=== PATIENT | male | born 1960 | race Caucasian/White ===

== ENCOUNTER 2018-02-23 17:38 | Inpatient (IN) | payer BC ==
[~2018-02-23] VITALS: Ht 167.6 cm; Wt 76.2 kg
[2018-02-23] MEDS ORDERED: KETOROLAC 30MG/ML VIAL IV ONE (18:00)
[2018-02-23] MEDS ORDERED: ONDANSETRON HCL 4MG/2ML INJ IV ONE (18:00)
[2018-02-23] MEDS ORDERED: SODIUM CHLORIDE 0.9% 1000ML BAG (SEPSIS BOLUS) IV ONE (18:00)
[2018-02-23 18:43] LABS: EOSINOPHILS % 0.8 % (0.0-5.0); HEMATOCRIT. 44.4 % (42.0-52.0); HEMOGLOBIN. 14.6 g/dL (14.0-18.0); LYMPHOCYTES % 15.3 % (20.0-50.0); MEAN CORPUSCULAR HEMOGLOBIN 28.5 pg (28.0-32.0); MEAN CORPUSCULAR VOLUME 86.4 fL (80.0-94.0); MEAN PLATELET VOLUME 9.6 fl (7.4-10.4); MONOCYTES % 2.3 % (2.0-8.0); NEUTROPHILS % 80.6 % (40.0-76.0); PLATELET 108 x1000/uL (130-400); RED BLOOD CELL COUNT 5.14 mill/uL (4.7-6.1); RED CELL DISTRIBUTION WIDTH 13.8 % (11.6-14.6)
[2018-02-23 18:45] LABS: CHLORIDE 103 mEq/L (98-107)
[2018-02-23 18:46] LABS: INR 1.3; PROTHROMBIN TIME 12.9 sec (9.1-11.1)
[2018-02-23] MEDS ORDERED: PIPERACILLIN/TAZ 3.375G PREMIX 50 ML IV NR (19:06)
[2018-02-23 19:10] LABS: CLARITY URINE CLOUDY (CLEAR); COLOR URINE DARK YELLOW (YELLOW); KETONES URINE TRACE (NEGATIVE); LEUKOCYTE ESTERASE URINE 3+ (NEGATIVE); NITRITE URINE POSITIVE (NEGATIVE); OCCULT BLOOD URINE 2+ (NEGATIVE); PROTEIN URINE 2+ (NEGATIVE); SPECIFIC GRAVITY URINE 1.031 (1.005-1.030)
[2018-02-23] MEDS ORDERED: PIPERACILLIN/TAZOBACTAM 3.375GM/50ML PREMIX IV ONE (19:15)
[2018-02-23] MEDS ORDERED: VANCOMYCIN 1 G PREMIX 200 ML IV SCH (19:15)
[2018-02-23] MEDS ORDERED: CLONIDINE 0.1MG TABLET PO PRN (20:00)
[2018-02-23] MEDS ORDERED: DEXTROSE 50% WATER 50ML SYRINGE IV PRN (20:00)
[2018-02-23] MEDS ORDERED: GUAIFENESIN 200MG/10ML SUGAR FREE UDC PO PRN (20:00)
[2018-02-23] MEDS ORDERED: DIPHENHYDRAMINE 50MG/ML VIAL IV PRN (20:00)
[2018-02-23] MEDS ORDERED: LORAZEPAM 0.5MG TABLET PO PRN (20:00)
[2018-02-23] MEDS ORDERED: DOCUSATE SODIUM 100MG CAPSULE PO PRN (20:00)
[2018-02-23] MEDS ORDERED: MAGNESIUM/ALUMINUM HYDROXIDE/SIMETHICONE 30ML UDC PO PRN (20:00)
[2018-02-23] MEDS ORDERED: LEVOFLOXACIN 500MG PREMIX 100 ML IV SCH (20:00)
[2018-02-23] MEDS ORDERED: NA PHOS,M-B/NA PHOS,DI-BA ENEMA 118ML PR PRN (20:00)
[2018-02-23] MEDS ORDERED: ZOLPIDEM TARTRATE 5MG TABLET PO PRN (20:00)
[2018-02-23] MEDS ORDERED: ONDANSETRON HCL 4MG/2ML INJ IV PRN (20:00)
[2018-02-23 22:19] LABS: CREATINE KINASE 139 IU/L (39-308)
[2018-02-23 22:20] LABS: CREATINE KINASE MB FRACTION < 1.0 ng/mL (0.5-3.6)
[2018-02-23 23:30] VITALS: BP 91/57
[2018-02-23] MEDS ORDERED: ATOR40TA70 PO (23:45)
[2018-02-23] MEDS ORDERED: LOSA25TA12 PO (23:45)
[2018-02-23] MEDS ORDERED: METF500T6 PO (23:45)
[2018-02-23] MEDS ORDERED: ASPI-1159 PO (23:46)
[2018-02-24] MEDS: ACETAMINOPHEN 325MG TABLET PO PRN ×5 (00:39→23:53)
[2018-02-24] MEDS: SODIUM CHLORIDE 0.9% 1,000 ML IV SCH ×3 (00:39→23:54)
[2018-02-24 04:00] VITALS: BP 90/61
[2018-02-24] MEDS: LEVOFLOXACIN 500MG PREMIX 100 ML IV SCH (04:08)
[2018-02-24] MEDS: CEFTRIAXONE 1 G PREMIX 50 ML IV SCH (05:28)
[2018-02-24] MEDS: BLOOD SUGAR DIAGNOSTIC STRIP TEST SCH ×4 (05:58→20:47)
[2018-02-24] MEDS: INSULIN LISPRO 100 UNITS/ML SUBCUT SCH ×4 (05:58→21:32)
[2018-02-24 08:00] VITALS: BP 93/61
[2018-02-24 08:15] LABS: CREATINE KINASE MB FRACTION 1.1 ng/mL (0.5-3.6)
[2018-02-24 08:51] LABS: *BARBITURATES SCREEN URINE NEGATIVE (NEGATIVE); *BENZODIAZEPINES SCREEN URINE NEGATIVE (NEGATIVE)
[2018-02-24 08:52] LABS: *AMPHETAMINES SCREEN URINE NEGATIVE (NEGATIVE); *COCAINE SCREEN URINE NEGATIVE (NEGATIVE); CANNABINOID URINE SCREEN NEGATIVE (NEGATIVE); METHADONE URINE SCREEN NEGATIVE (NEGATIVE); OPIATES URINE SCREEN NEGATIVE (NEGATIVE); PHENCYCLIDINE URINE SCREEN NEGATIVE (NEGATIVE)
[2018-02-24] MEDS ORDERED: ENOXAPARIN 40MG/0.4ML SYR SUBCUT SCH (09:00)
[2018-02-24] MEDS ORDERED: CEFTRIAXONE 1 G PREMIX 50 ML IV SCH (09:00)
[2018-02-24] MEDS: FAMOTIDINE 20MG TABLET PO SCH ×2 (09:15→21:30)
[2018-02-24] MEDS: ZINC SULFATE 220 MG ( 50 ) CAPSULE PO SCH (09:15)
[2018-02-24] MEDS: ASPIRIN 325MG EC TABLET PO SCH (09:15)
[2018-02-24] MEDS: ASCORBIC ACID 500 MG TABLET PO SCH ×2 (09:15→21:30)
[2018-02-24] MEDS ORDERED: TRAMADOL 50MG TABLET PO PRN (11:45)
[2018-02-24 12:00] VITALS: BP 102/64
[2018-02-24] MEDS: KETOROLAC 15MG/ML VIAL IV PRN ×2 (12:17→19:10)
[2018-02-24 13:30] VITALS: BP 100/63
[2018-02-24 16:00] VITALS: BP 122/78
[2018-02-24 20:00] VITALS: BP 114/74
[2018-02-24] MEDS ORDERED: IOHEXOL-300 100 ML BOTTLE ONE (22:38)
[2018-02-25] VITALS: BP 153/88
[2018-02-25] MEDS: KETOROLAC 15MG/ML VIAL IV PRN ×3 (01:20→15:17)
[2018-02-25 04:00] VITALS: BP 110/66
[2018-02-25] MEDS: LEVOFLOXACIN 500MG PREMIX 100 ML IV SCH (04:25)
[2018-02-25] MEDS: CEFTRIAXONE 1 G PREMIX 50 ML IV SCH (05:26)
[2018-02-25] MEDS: INSULIN LISPRO 100 UNITS/ML SUBCUT SCH ×4 (06:22→20:46)
[2018-02-25] MEDS: BLOOD SUGAR DIAGNOSTIC STRIP TEST SCH ×4 (06:22→20:45)
[2018-02-25 06:39] LABS: HEMATOCRIT. 35.9 % (42.0-52.0); HEMOGLOBIN. 11.9 g/dL (14.0-18.0); MEAN CORPUSCULAR HEMOGLOBIN 28.9 pg (28.0-32.0); MEAN CORPUSCULAR VOLUME 86.9 fL (80.0-94.0); MEAN PLATELET VOLUME 10.6 fl (7.4-10.4); PLATELET 88 x1000/uL (130-400); RED BLOOD CELL COUNT 4.13 mill/uL (4.7-6.1); RED CELL DISTRIBUTION WIDTH 14.1 % (11.6-14.6)
[2018-02-25 07:08] LABS: CHLORIDE 111 mEq/L (98-107)
[2018-02-25 08:00] VITALS: BP 157/97
[2018-02-25] MEDS: ASCORBIC ACID 500 MG TABLET PO SCH ×2 (08:27→20:43)
[2018-02-25] MEDS: FAMOTIDINE 20MG TABLET PO SCH ×2 (08:27→20:43)
[2018-02-25] MEDS: ZINC SULFATE 220 MG ( 50 ) CAPSULE PO SCH (08:27)
[2018-02-25] MEDS: ASPIRIN 325MG EC TABLET PO SCH (08:28)
[2018-02-25] MEDS: SODIUM CHLORIDE 0.9% 1,000 ML IV SCH ×3 (11:19→20:54)
[2018-02-25 12:00] VITALS: BP 131/79
[2018-02-25 15:29] LABS: PLATELET ESTIMATE DECREASED
[2018-02-25 16:00] VITALS: BP 150/79
[2018-02-25] MEDS: ACETAMINOPHEN 325MG TABLET PO PRN ×2 (17:24→21:41)
[2018-02-25 20:00] VITALS: BP 139/85
[2018-02-26] VITALS (7 sets, daily range): BP systolic 126–155; BP diastolic 68–97
[2018-02-26] MEDS: ACETAMINOPHEN 325MG TABLET PO PRN ×5 (01:54→21:32)
[2018-02-26] MEDS: LEVOFLOXACIN 500MG PREMIX 100 ML IV SCH (04:05)
[2018-02-26] MEDS: CEFTRIAXONE 1 G PREMIX 50 ML IV SCH (05:06)
[2018-02-26] MEDS: INSULIN LISPRO 100 UNITS/ML SUBCUT SCH ×4 (05:59→21:34)
[2018-02-26] MEDS: BLOOD SUGAR DIAGNOSTIC STRIP TEST SCH ×4 (05:59→21:00)
[2018-02-26] MEDS: KETOROLAC 15MG/ML VIAL IV PRN (06:29)
[2018-02-26] MEDS: SODIUM CHLORIDE 0.9% 1,000 ML IV SCH (07:06)
[2018-02-26] MEDS: FAMOTIDINE 20MG TABLET PO SCH ×2 (09:25→21:31)
[2018-02-26] MEDS: ZINC SULFATE 220 MG ( 50 ) CAPSULE PO SCH (09:25)
[2018-02-26] MEDS: ASPIRIN 325MG EC TABLET PO SCH (09:25)
[2018-02-26] MEDS: ASCORBIC ACID 500 MG TABLET PO SCH ×2 (09:25→21:33)
[2018-02-26] MEDS: IPRATROPIUM/ALBUTEROL 0.5-3(2.5)MG/3ML NEB INH PRN ×2 (13:17→17:06)
[2018-02-26] MEDS: OSELTAMIVIR 75MG CAPSULE PO SCH (21:40)
[2018-02-27] VITALS (7 sets, daily range): BP systolic 105–143; BP diastolic 60–88
[2018-02-27] MEDS: ACETAMINOPHEN 325MG TABLET PO PRN ×4 (02:09→16:54)
[2018-02-27] MEDS: SODIUM CHLORIDE 0.9% 1,000 ML IV SCH ×3 (02:15→21:19)
[2018-02-27] MEDS: LEVOFLOXACIN 500MG PREMIX 100 ML IV SCH (05:13)
[2018-02-27] MEDS: CEFTRIAXONE 1 G PREMIX 50 ML IV SCH (06:22)
[2018-02-27 06:35] LABS: HEMATOCRIT. 34.6 % (42.0-52.0); HEMOGLOBIN. 11.8 g/dL (14.0-18.0); MEAN CORPUSCULAR VOLUME 84.9 fL (80.0-94.0); MEAN PLATELET VOLUME 10.1 fl (7.4-10.4); PLATELET 101 x1000/uL (130-400); RED BLOOD CELL COUNT 4.08 mill/uL (4.7-6.1); RED CELL DISTRIBUTION WIDTH 13.9 % (11.6-14.6)
[2018-02-27 06:47] LABS: CHLORIDE 108 mEq/L (98-107)
[2018-02-27] MEDS: BLOOD SUGAR DIAGNOSTIC STRIP TEST SCH ×4 (06:47→21:17)
[2018-02-27] MEDS: INSULIN LISPRO 100 UNITS/ML SUBCUT SCH ×4 (06:57→21:22)
[2018-02-27 07:11] LABS: HEPATITIS B SURFACE ANTIGEN NEGATIVE
[2018-02-27 07:39] LABS: HEPATITIS B CORE AB IGM NEGATIVE
[2018-02-27 07:41] LABS: HEPATITIS A AB IGM NEGATIVE (NEGATIVE)
[2018-02-27] MEDS: ASCORBIC ACID 500 MG TABLET PO SCH ×2 (08:15→21:03)
[2018-02-27] MEDS: ZINC SULFATE 220 MG ( 50 ) CAPSULE PO SCH (08:15)
[2018-02-27] MEDS: FAMOTIDINE 20MG TABLET PO SCH ×2 (08:15→21:03)
[2018-02-27] MEDS: ASPIRIN 325MG EC TABLET PO SCH (08:16)
[2018-02-27] MEDS: OSELTAMIVIR 75MG CAPSULE PO SCH ×2 (08:16→21:44)
[2018-02-27 11:12] LABS: ATYPICAL LYMPHOCYTES 1
[2018-02-27 11:15] LABS: PLATELET ESTIMATE SLIGHTLY DECREASED
[2018-02-28] VITALS: BP 131/81
[2018-02-28 04:00] VITALS: BP 130/80
[2018-02-28] MEDS: SODIUM CHLORIDE 0.9% 1,000 ML IV SCH ×2 (05:47→21:41)
[2018-02-28] MEDS: CEFTRIAXONE 1 G PREMIX 50 ML IV SCH (05:48)
[2018-02-28] MEDS: BLOOD SUGAR DIAGNOSTIC STRIP TEST SCH ×4 (06:26→21:41)
[2018-02-28] MEDS: INSULIN LISPRO 100 UNITS/ML SUBCUT SCH ×4 (06:26→22:02)
[2018-02-28] MEDS: LEVOFLOXACIN 500MG PREMIX 100 ML IV SCH (06:37)
[2018-02-28 08:00] VITALS: BP 132/80
[2018-02-28] MEDS: FAMOTIDINE 20MG TABLET PO SCH ×2 (09:03→21:38)
[2018-02-28] MEDS: ZINC SULFATE 220 MG ( 50 ) CAPSULE PO SCH (09:04)
[2018-02-28] MEDS: ASCORBIC ACID 500 MG TABLET PO SCH ×2 (09:04→21:38)
[2018-02-28] MEDS: OSELTAMIVIR 75MG CAPSULE PO SCH (09:07)
[2018-02-28] MEDS: ASPIRIN 325MG EC TABLET PO SCH (09:08)
[2018-02-28 12:00] VITALS: BP 149/69
[2018-02-28 16:00] VITALS: BP 141/75
[2018-02-28 20:00] VITALS: BP 133/80
[2018-03-01] VITALS: BP 145/75
[2018-03-01 04:00] VITALS: BP 136/77
[2018-03-01] MEDS: CEFTRIAXONE 1 G PREMIX 50 ML IV SCH (05:30)
[2018-03-01] MEDS: BLOOD SUGAR DIAGNOSTIC STRIP TEST SCH (06:16)
[2018-03-01] MEDS: LEVOFLOXACIN 500MG PREMIX 100 ML IV SCH (06:16)
[2018-03-01] MEDS: INSULIN LISPRO 100 UNITS/ML SUBCUT SCH (06:16)
[2018-03-01 08:00] VITALS: BP 140/78
[2018-03-01] MEDS: ASPIRIN 325MG EC TABLET PO SCH (09:23)
[2018-03-01] MEDS: ASCORBIC ACID 500 MG TABLET PO SCH (09:23)
[2018-03-01] MEDS: ZINC SULFATE 220 MG ( 50 ) CAPSULE PO SCH (09:23)
[2018-03-01] MEDS: FAMOTIDINE 20MG TABLET PO SCH (09:23)
[2018-03-01 11:16] VITALS: BP 141/86
[2018-03-01 11:20] VITALS: BP 141/86
== END 2018-03-01 11:45 | disposition home or self-care (01) | DRG 872 ==
LOC: ER 17:38 → 5WST 19:33 → ENRESERV 22:02
PROVIDERS: ADMIT Internal Medicine; ATTEND Internal Medicine
DX: A41.51 Sepsis due to Escherichia coli [E. coli] (principal); N39.0 Urinary tract infection, site not specified; E11.9 Type 2 diabetes mellitus without complications; B96.20 Unspecified Escherichia coli [E. coli] as the cause of diseases classified elsewhere; F17.210 Nicotine dependence, cigarettes, uncomplicated; I10 Essential (primary) hypertension; E78.5 Hyperlipidemia, unspecified; D69.6 Thrombocytopenia, unspecified; K76.0 Fatty (change of) liver, not elsewhere classified; E78.00 Pure hypercholesterolemia, unspecified; R65.20 Severe sepsis without septic shock; Z79.4 Long term (current) use of insulin; Z88.8 Allergy status to other drugs, medicaments and biological substances
CPT/HCPCS: 36415; 71045; 74178; 80048; 80053; 80076; 80305; 81003; 82550; 82553; 82962; 83036; 83605; 83880; 84443; 84484; 85025; 85610; 86705; 86709; 86803; 87040; 87077; 87086; 87186; 87340; 87493; 87804; 93005; 93970; 94640; 96361; 96365; 96366; 96368; 96375; 99291; J0696; J1650; J1815; J1885; J1956; J2405; J2543; J3370; J7030; J7040; J7620; Q9967